=== PATIENT | female | born 1955 | race African-American/Black ===

== ENCOUNTER 2020-02-22 12:12 | Inpatient (IN) | payer BC, OTHER ==
[2020-02-22] MEDS ORDERED: predniSONE 20 MG TAB ONE (12:41)
[2020-02-22] MEDS ORDERED: Acetaminophen 500 MG TAB ONE (12:41)
[2020-02-22 13:49] LABS: #Basophils 0.2 thou/uL (0.0-0.2); #Lymphocytes 0.9 thou/uL (1.20-3.40); #Monocytes 0.3 thou/uL (0.11-0.59); #Neutrophils 4.9 thou/uL (1.40-6.50); %Basophils 2.5 % (0.0-1.0); %Eosinophils 0.2 % (0.0-10.0); %Lymphocytes 14.7 % (21.0-51.0); %Monocytes 4.8 % (0.0-10.0); %Neutrophils 77.8 % (42.0-75.0); Hemoglobin 12.2 g/dL (12.0-16.0); Mean Corpuscular HGB CONC 31.4 g/dL (32.0-36.0); Mean Corpuscular Volume 79.8 fL (78.0-98.0); Mean Platelet Volume 7.9 fL (7.4-10.4); Platelet Count 272 thou/uL (130-400); RBC Distribution Width 12.6 % (11.5-14.5); Red Blood Cell (RBC) Count 4.86 mill/uL (4.20-5.40); White Blood Cell (WBC) Count 6.3 thou/uL (4.8-10.8)
[2020-02-22 14:09] LABS: ALT (SGPT) 79 U/L (8-55); AST (SGOT) 84 U/L (5-34); Albumin 3.9 g/dL (3.4-4.8); Alkaline Phosphatase 64 U/L (40-110); Anion Gap 12 mmol/L (10-20); BUN (Urea Nitrogen) 8 mg/dL (9.8-20.1); Bilirubin, Total 0.4 mg/dL (0.2-1.2); Calc. Creatinine Clearance 0 mL/min (70-130); Calcium 8.5 mg/dL (7.8-10.44); Carbon Dioxide 27 mmol/L (23-31); Chloride 103 mmol/L (98-107); Estimated GFR-MDRD Greater than 90; Globulin 2.8 g/dL (2.4-3.5); Glucose 119 mg/dL (80-115); Potassium 3.8 mmol/L (3.5-5.1); Protein, Total 6.7 g/dL (6.0-8.3); Sodium 138 mmol/L (136-145)
--- NOTE | 2020-02-22 14:11 | RAD ---
PORTABLE CHEST 1 VIEW: DATE: . TIME: 12:22 PM. HISTORY: Difficulty breathing, fever, daughter is COVID positive. FINDINGS: The heart size is normal. The aorta is tortuous. There are patchy peripheral opacities. No pneumot horaces or pleural effusions are seen. Degenerative changes are seen in the spine. Recommend correlation for COVID-19. POS: [facility]
[2020-02-22] MEDS ORDERED: Senokot S 8.6-50 MG TAB PO PRN (17:18)
[2020-02-22] MEDS ORDERED: Acetaminophen 650 MG Suppository PR PRN (17:18)
[2020-02-22] MEDS ORDERED: Ondansetron ODT 4 MG TAB PO PRN (17:18)
[2020-02-22] MEDS ORDERED: Ondansetron PF 4 MG/2 ML Vial IVP PRN (17:18)
[2020-02-22 17:56] VITALS: BMI 31.9
--- NOTE | 2020-02-22 23:29 | HP ---
PRIMARY CARE PHYSICIAN: Out of town and [place]. CHIEF COMPLAINT: Fever and shortness of breath. HISTORY OF PRESENT ILLNESS: This is a 65-year-old female with a past medical history of hypertension, who has been in town helping her daughter take care of her grandson. The patient reports that her daughter works in [employer]. She was tested for COVID 2 weeks ago, was negative and then last week she was retested and came back positive for COVID. Her daughter had some mild respiratory symptoms, but is now improving. The patient starting about a week ago, started to get some cough and congestion, three days ago started to get severe worsening of symptoms. She developed high fevers to 101, shortness of breath especially with the need for ambulation and chest pain with cough, worsening cough productive of clear sputum and diarrhea about five times per day. The patient reports that her dyspnea on exertion got so severe that she felt like she could not even move out of bed this morning and was very dyspneic on having ambulate to the bathroom and so, she came into the emergency room. She did call an ambulance. They found her to be 92% on room air at rest and put her on oxygen. She felt significantly better. In the emergency room, she had a chest x-ray done which showed some bilateral infiltrate to the peripheries consistent with COVID pneumonia and she had a COVID test sent, which is now pending. REVIEW OF SYSTEMS: CONSTITUTIONAL: See HPI. EYES: No double vision or blurred vision. ENT: She has had a little bit of runny nose. No sore throat. CARDIOVASCULAR: See HPI. No palpitations or racing heart. PULMONARY: See HPI. GASTROINTESTINAL: No abdominal pain. She has had some nausea and vomited some yesterday but not today and diarrhea about five times per day for the last three days. No blood or mucus in the diarrhea. GENITOURINARY: No dysuria or hematuria. MUSCULOSKELETAL: No muscle aches or joint pain. SKIN: No rashes or lesions noted. NEUROLOGIC: No numbness, tingling, or focal weakness, just some generalized weakness. PAST MEDICAL HISTORY: Hypertension. PAST SURGICAL HISTORY: None. SOCIAL HISTORY: No tobacco, alcohol, or illicit drug use. She normally lives with her . However, she is visiting in the town to take care of her grandson and so staying with her daughter right now. FAMILY HISTORY: Significant for cancer in some family members and some high blood pressure. ALLERGIES: NO KNOWN DRUG ALLERGIES. CURRENT MEDICATIONS: 1. Metoprolol succinate 50 mg daily. 2. Amlodipine 10 mg daily. 3. Citalopram 20 mg daily. 4. Hyoscyamine sulfate 0.125 mg every 6 hours as needed for abdominal cramping. PHYSICAL EXAMINATION: VITAL SIGNS: Blood pressure 128/75, pulse 88, respirations 18, O2 saturation 97% on 2 L of oxygen, temperature 101.1 initially in the emergency room for which she was given Tylenol. GENERAL: This is a well-developed obese female, in no acute distress. HEENT: Pupils are equal, round, and reactive to light. Oropharynx clear without lesions, erythema, or exudate. NECK: Supple. No lymphadenopathy. No thyroid nodules or enlargement. No JVD. HEART: Regular rate and rhythm. No murmurs, rubs, or gallops. LUNGS: Some occasional crackles in bilateral lung rodríguez, but decent air movement throughout. She did have some increased work of breathing and mild shortness of breath with talking. ABDOMEN: Soft, nontender to palpation. Normoactive bowel sounds. No hepatosplenomegaly or other masses. EXTREMITIES: No clubbing, cyanosis, or edema. SKIN: No rashes or lesions noted. NEUROLOGIC: No numbness, tingling, or focal weakness. PSYCHIATRIC: Alert and oriented x3. Normal mood and affect. LABORATORY DATA: CBC within normal limits. Complete metabolic panel is notable for BUN of 8, glucose of 119, AST of 84, and ALT of 79. The rest was normal. Troponin was negative x1 and brain natriuretic peptide was negative as well. Chest x-ray, I did review the chest x-ray done in the emergency room along with the radiologist's report. It does show patchy peripheral opacities consistent with COVID-19 pneumonia. EKG in the emergency room shows normal sinus rhythm with no ST-segment changes or T-wave abnormalities. Normal EKG. ASSESSMENT: 1. COVID-19 pneumonia. Currently, the patient is only requiring low doses of oxygen and is clinically stable, so we will hold off on dexamethasone for now. We will need to monitor closely in the hospital for any deterioration. 2. Acute hypoxic respiratory failure, improved with nasal cannula oxygen. We will see how quickly we can wean her off this. 3. Hypertension. Resume the patient's home medications. 4. Gastrointestinal prophylaxis. Patient on Pepcid twice a day. 5. Deep venous thrombosis prophylaxis. Patient on subcu Lovenox. 6. Code status. The patient is a full code. Should she be incapacitated, she states that her medical decision maker would be her daughter or her . Job ID: [id number]
[2020-02-23] MEDS: Acetaminophen 325 MG TAB PO PRN ×3 (01:57→18:27)
[2020-02-23 05:24] LABS: ALT (SGPT) 73 U/L (8-55); AST (SGOT) 59 U/L (5-34); Albumin 3.7 g/dL (3.4-4.8); Alkaline Phosphatase 62 U/L (40-110); Anion Gap 13 mmol/L (10-20); BUN (Urea Nitrogen) 12 mg/dL (9.8-20.1); Bilirubin, Total 0.3 mg/dL (0.2-1.2); Calc. Creatinine Clearance 95 mL/min (70-130); Calcium 8.9 mg/dL (7.8-10.44); Carbon Dioxide 27 mmol/L (23-31); Chloride 103 mmol/L (98-107); Estimated GFR-MDRD 85; Globulin 3.3 g/dL (2.4-3.5); Glucose 128 mg/dL (80-115); Potassium 3.6 mmol/L (3.5-5.1); Sodium 139 mmol/L (136-145)
[2020-02-23 05:47] LABS: Band 6 % (5-11); Hemoglobin 11.9 g/dL (12.0-16.0); Hypochromia SLIGHT = 6-15 cells (100X) (0-5/hpf); Lymphocytes 13 % (21-51); MDiff Complete? YES; Mean Corpuscular Hemoglobin 24.6 pg (27.0-31.0); Mean Corpuscular Volume 79.5 fL (78.0-98.0); Monocytes 3 % (0-10); Neutrophil 78 % (42-75); Platelet Count 310 thou/uL (130-400); Platelet Morphology Comment Appears Adequate; RBC Distribution Width 12.7 % (11.5-14.5); Red Blood Cell (RBC) Count 4.84 mill/uL (4.20-5.40); White Blood Cell (WBC) Count 4.9 thou/uL (4.8-10.8)
[2020-02-23] MEDS: Enoxaparin Sodium 40 MG/0.4 ML SYRINGE SC SCH ×2 (07:45→08:11)
[2020-02-23] MEDS: Amlodipine 10 MG TAB PO SCH (07:46)
[2020-02-23] MEDS: Citalopram 20 MG TAB PO SCH (07:46)
[2020-02-23 14:15] LABS: SARS-CoV-2 MS2 Positive; SARS-CoV-2 N Gene Positive; SARS-CoV-2 S Gene Positive; SARS-CoV-2 orf1ab Positive
[2020-02-23] MEDS ORDERED: Loperamide HCl 2 MG CAP PO PRN (17:16)
[2020-02-23] MEDS ORDERED: Albuterol Sulfate 2.5 mg/3 ml Neb NEB SCH ×2 (18:15→19:00)
[2020-02-23] MEDS ORDERED: Dexamethasone 4 MG TAB PO SCH (18:15)
[2020-02-23] MEDS: Guaifenesin DM 100-10/5 ML UDCUP PO PRN (18:27)
[2020-02-23] MEDS ORDERED: Azithromycin 500 MG in Sodium Chloride 0.9% 250 ML 250 ML IVPB SCH (18:30)
[2020-02-23] MEDS: Albuterol 200 PUFF (6.7GM INHALER) INH SCH (18:57)
--- NOTE | 2020-02-23 20:22 | PDOC.HOSPP ---
- Subjective Encounter Date: 02/23/20 Encounter Time: 17:00 Subjective: f/u for COVID-19 PNA on current Zithromax/Dexamethasone/Albuterol/O2 @ 2L/min. c /o body aches, diarrhea and ARELLANO. - Objective Vital Signs & Weight: Vital Signs (12 hours) Temp Pulse Resp BP Pulse Ox 02/23/20 19:35 99.3 F 96 20 132/67 94 L 02/23/20 16:26 101.7 F H 90 18 145/66 H 94 L 02/23/20 12:11 99.8 F H 90 18 139/66 90 L Weight Admit Weight 192 lb Weight 192 lb I&O: 02/22/20 02/23/20 02/24/20 06:59 06:59 06:59 Intake Total 300 720 Output Total 245 Balance 55 720 Result Diagrams: 02/23/20 04:39 02/23/20 04:39 Additional Labs: Laboratory Tests 02/22/20 02/22/20 02/22/20 13:35 13:35 16:51 AST 84 H ALT 79 H B-Natriuretic Peptide Less than 10.0 COVID-19 PCR DETECTED A* 02/23/20 04:39 AST 59 H ALT 73 H B-Natriuretic Peptide COVID-19 PCR Radiology Reviewed by me: Yes (PCXR - patchy peripheral infiltrates) EKG Reviewed by me: Yes (Tele - SR) Hospitalist ROS - Medication Medications: Active Medications Generic Name Dose Route Start Last Admin Trade Name Freq PRN Reason Stop Dose Admin Acetaminophen 650 mg 02/22/20 17:18 02/23/20 18:27 Tylenol PO 650 mg Q4H PRN Administration Headache/Fever/Mild Pain (1-3) Albuterol Sulfate 2 puff 02/23/20 19:00 02/23/20 18:57 Proventil Hfa INH 2 puff [id number] ARCHANA Administration Amlodipine Besylate 10 mg 02/23/20 09:00 02/23/20 07:46 Norvasc PO 10 mg DAILY ARCHANA Administration Citalopram Hydrobromide 20 mg 02/23/20 09:00 02/23/20 07:46 Celexa PO 20 mg DAILY ARCHANA Administration Dexamethasone 6 mg 02/23/20 18:15 02/23/20 18:27 Decadron PO 02/23/20 20:30 6 mg NOW ARCHANA Administration Enoxaparin Sodium 40 mg 02/23/20 09:00 02/23/20 08:11 Lovenox SC Not Given 0900 [facility] Guaifenesin/Dextromethorphan 15 ml 02/23/20 17:18 02/23/20 18:27 Robitussin Dm PO 15 ml Q4H PRN Administration Cough Azithromycin 500 mg/ Sodium 250 mls @ 250 mls/hr 02/23/20 18:30 02/23/20 18: 57 Chloride IVPB 250 mls 1830 ARCHANA Administration Loperamide HCl 2 mg 02/23/20 17:16 02/23/20 18:27 Imodium PO 2 mg DAILYPRN PRN Administration Diarrhea/Loose Stools Metoprolol Succinate 50 mg 02/23/20 09:00 02/23/20 07:46 Toprol Xl PO 50 mg DAILY ARCHANA Administration Ondansetron HCl 4 mg 02/22/20 17:18 02/23/20 16:21 Zofran Odt PO 4 mg Q6H PRN Administration Nausea/Vomiting Pantoprazole Sodium 40 mg 02/23/20 09:00 02/23/20 07:46 Protonix PO 40 mg DAILY ARCHANA Administration - Exam General Appearance: awake alert, ill appearing General - other findings: responsive to questions Eye: PERRL, anicteric sclera ENT: normocephalic atraumatic, no oropharyngeal lesions Neck: supple, symmetric, no JVD, no thyromegaly, no lymphadenopathy Heart: RRR, no murmur, no gallops, no rubs, normal peripheral pulses Heart - other findings: S1, S2 Respiratory: tachypneic Respiratory - other findings: diminished bilat, occ wheeze and rhonchi bilat Gastrointestinal: soft, non-tender, non-distended, normal bowel sounds, no palpable masses Extremities: no cyanosis, no clubbing, no edema Skin: normal turgor, no lesions Neurological: cranial nerve grossly intact, no new deficit Musculoskeletal: normal tone, normal strength, no muscle wasting Psychiatric: normal affect, A&O x 3 Hosp A/P (1) Pneumonia due to COVID-19 virus Code(s): U07.1 - COVID-19; J12.89 - OTHER VIRAL PNEUMONIA Status: Acute Plan: Continue Zithromax/Dexamethasone/Albuterol, isolation protocol, O2 as clinically indicated (2) Acute respiratory failure with hypoxia Code(s): J96.01 - ACUTE RESPIRATORY FAILURE WITH HYPOXIA Status: Acute Plan: continue O2 support, wean as clinically indicated (3) HTN (hypertension) Code(s): I10 - ESSENTIAL (PRIMARY) HYPERTENSION Status: Chronic Qualifiers: Hypertension type: essential hypertension Qualified Code(s): I10 - Essential (primary) hypertension Plan: Resume home BP regimen and monitor trend (4) Transaminitis Code(s): R74.0 - NONSPEC ELEV OF LEVELS OF TRANSAMNS & LACTIC ACID DEHYDRGNSE Status: Chronic Plan: Suspect chronic and related to fatty infiltration, serial monitoring - Plan continue antibiotics, outreach and education social worker, respiratory therapy, out of bed/ambulate , DVT proph w/SCDs Stable currently Continue Zithromax IV Continue Dexamethasone Continue Albuterol/O2 support Isolation protocol OOB/ambulate
[2020-02-24] MEDS: Albuterol 200 PUFF (6.7GM INHALER) INH SCH ×4 (01:20→18:43)
[2020-02-24] MEDS: Dexamethasone 4 MG TAB PO SCH (07:42)
[2020-02-24] MEDS: Amlodipine 10 MG TAB PO SCH (07:43)
[2020-02-24] MEDS: Enoxaparin Sodium 40 MG/0.4 ML SYRINGE SC SCH (07:44)
[2020-02-24] MEDS: Acetaminophen 325 MG TAB PO PRN ×2 (07:44→20:00)
[2020-02-24] MEDS: Citalopram 20 MG TAB PO SCH (07:44)
--- NOTE | 2020-02-24 15:12 | PDOC.HOSPP ---
- Subjective Encounter Date: 02/24/20 Encounter Time: 14:50 Subjective: f/u for COVID-19 PNA on Zithromax/Albuterol/O2 support. Feels better overall with some SOB with ambulation. - Objective Vital Signs & Weight: Vital Signs (12 hours) Temp Pulse Resp BP BP Pulse Ox 02/24/20 11:34 99.0 F 77 19 113/58 L 94 L 02/24/20 08:43 93 L 02/24/20 08:00 99.1 F 86 18 147/70 H 93 L 02/24/20 05:15 94 L 02/24/20 04:00 98.9 F 85 20 122/67 94 L Weight Admit Weight 192 lb Weight 192 lb I&O: 02/23/20 02/24/20 02/25/20 06:59 06:59 06:59 Intake Total 300 1620 Output Total 245 Balance 55 1620 Result Diagrams: 02/23/20 04:39 02/23/20 04:39 Additional Labs: Laboratory Tests 02/22/20 02/22/20 02/22/20 13:35 13:35 16:51 AST 84 H ALT 79 H B-Natriuretic Peptide Less than 10.0 COVID-19 PCR DETECTED A* 02/23/20 04:39 AST 59 H ALT 73 H B-Natriuretic Peptide COVID-19 PCR EKG Reviewed by me: Yes (Tele - SR) Hospitalist ROS - Medication Medications: Active Medications Generic Name Dose Route Start Last Admin Trade Name Freq PRN Reason Stop Dose Admin Acetaminophen 650 mg 02/22/20 17:18 02/24/20 07:44 Tylenol PO 650 mg Q4H PRN Administration Headache/Fever/Mild Pain (1-3) Albuterol Sulfate 2 puff 02/23/20 19:00 02/24/20 12:43 Proventil Hfa INH 2 puff [id number] ARCHANA Administration Amlodipine Besylate 10 mg 02/23/20 09:00 02/24/20 07:43 Norvasc PO 10 mg DAILY ARCHANA Administration Citalopram Hydrobromide 20 mg 02/23/20 09:00 02/24/20 07:44 Celexa PO 20 mg DAILY ARCHANA Administration Dexamethasone 6 mg 02/24/20 08:00 02/24/20 07:42 Decadron PO 6 mg QAM-WM ARCHANA Administration Enoxaparin Sodium 40 mg 02/23/20 09:00 02/24/20 07:44 Lovenox SC 40 mg 0900 ARCHANA Administration Guaifenesin/Dextromethorphan 15 ml 02/23/20 17:18 02/23/20 18:27 Robitussin Dm PO 15 ml Q4H PRN Administration Cough Loperamide HCl 2 mg 02/23/20 17:16 02/23/20 18:27 Imodium PO 2 mg DAILYPRN PRN Administration Diarrhea/Loose Stools Metoprolol Succinate 50 mg 02/23/20 09:00 02/24/20 07:44 Toprol Xl PO 50 mg DAILY ARCHANA Administration Ondansetron HCl 4 mg 02/22/20 17:18 02/23/20 16:21 Zofran Odt PO 4 mg Q6H PRN Administration Nausea/Vomiting Pantoprazole Sodium 40 mg 02/23/20 09:00 02/24/20 07:44 Protonix PO 40 mg DAILY ARCHANA Administration - Exam General Appearance: NAD, awake alert Eye: PERRL, anicteric sclera ENT: normocephalic atraumatic, no oropharyngeal lesions Neck: supple, symmetric, no JVD, no thyromegaly, no lymphadenopathy Heart: RRR, no murmur, no gallops, no rubs, normal peripheral pulses Heart - other findings: S1, S2 Respiratory: normal chest expansion, tachypneic Respiratory - other findings: diminished bilat, exp wheeze Gastrointestinal: soft, non-tender, non-distended, normal bowel sounds, no palpable masses Extremities: no cyanosis, no clubbing, no edema Skin: normal turgor, no lesions Neurological: cranial nerve grossly intact, no new deficit Musculoskeletal: normal tone, normal strength, no muscle wasting Psychiatric: A&O x 3 Psychiatric - other findings: tearful Hosp A/P (1) Pneumonia due to COVID-19 virus Code(s): U07.1 - COVID-19; J12.89 - OTHER VIRAL PNEUMONIA Status: Acute Plan: Continue Zithromax/Dexamethasone/Albuterol, continue isolation precautions, O2 weaning as clinically indicated (2) Acute respiratory failure with hypoxia Code(s): J96.01 - ACUTE RESPIRATORY FAILURE WITH HYPOXIA Status: Acute Plan: See above #1 (3) HTN (hypertension) Code(s): I10 - ESSENTIAL (PRIMARY) HYPERTENSION Status: Chronic Qualifiers: Hypertension type: essential hypertension Qualified Code(s): I10 - Essential (primary) hypertension Plan: Stable, continue home BP regimen (4) Transaminitis Code(s): R74.0 - NONSPEC ELEV OF LEVELS OF TRANSAMNS & LACTIC ACID DEHYDRGNSE Status: Chronic Plan: Likely fatty liver infiltration - Plan continue antibiotics, PT/OT, social worker aide, respiratory therapy, out of bed/ ambulate, DVT proph w/SCDs Stable currently Continue Zithromax IV Continue Dexamethasone Continue Albuterol/O2 support Isolation protocol OOB/ambulate Wean O2 as clinically indicated
[2020-02-24] MEDS: Azithromycin 500 MG in Sodium Chloride 0.9% 250 ML 250 ML IVPB SCH (20:00)
[2020-02-24] MEDS: Guaifenesin DM 100-10/5 ML UDCUP PO PRN (20:00)
[2020-02-25] MEDS: Albuterol 200 PUFF (6.7GM INHALER) INH SCH ×4 (01:19→18:30)
[2020-02-25] MEDS: Dexamethasone 4 MG TAB PO SCH (08:26)
[2020-02-25] MEDS: Citalopram 20 MG TAB PO SCH (08:26)
[2020-02-25] MEDS: Amlodipine 10 MG TAB PO SCH (08:26)
[2020-02-25] MEDS: Enoxaparin Sodium 40 MG/0.4 ML SYRINGE SC SCH (08:27)
[2020-02-25] MEDS: Acetaminophen 325 MG TAB PO PRN (08:34)
--- NOTE | 2020-02-25 17:13 | PDOC.HOSPP ---
- Subjective Encounter Date: 02/25/20 Encounter Time: 17:10 Subjective: f/u for COVID-19 PNA on current Zithromax/Dexamethasone/Albuterol and O2 @ 2L/ min NC. States feeling better today. - Objective Vital Signs & Weight: Vital Signs (12 hours) Temp Pulse Resp BP Pulse Ox 02/25/20 16:40 98.9 F 73 18 132/63 96 02/25/20 12:33 98.6 F 69 20 116/62 94 L 02/25/20 11:29 96 02/25/20 08:47 99.0 F 70 18 141/65 H 96 Weight Admit Weight 192 lb Weight 192 lb I&O: 02/24/20 02/25/20 02/26/20 06:59 06:59 06:59 Intake Total [id number] Balance 1619 2079 Result Diagrams: 02/23/20 04:39 02/23/20 04:39 Additional Labs: Laboratory Tests 02/22/20 02/22/20 02/22/20 13:35 13:35 16:51 AST 84 H ALT 79 H B-Natriuretic Peptide Less than 10.0 COVID-19 PCR DETECTED A* 02/23/20 04:39 AST 59 H ALT 73 H B-Natriuretic Peptide COVID-19 PCR EKG Reviewed by me: Yes (Tele - SR) Hospitalist ROS - Medication Medications: Active Medications Generic Name Dose Route Start Last Admin Trade Name Freq PRN Reason Stop Dose Admin Acetaminophen 650 mg 02/22/20 17:18 02/25/20 08:34 Tylenol PO 650 mg Q4H PRN Administration Headache/Fever/Mild Pain (1-3) Albuterol Sulfate 2 puff 02/23/20 19:00 02/25/20 12:55 Proventil Hfa INH 2 puff [id number] ARCHANA Administration Amlodipine Besylate 10 mg 02/23/20 09:00 02/25/20 08:26 Norvasc PO 10 mg DAILY ARCHANA Administration Citalopram Hydrobromide 20 mg 02/23/20 09:00 02/25/20 08:26 Celexa PO 20 mg DAILY ARCHANA Administration Dexamethasone 6 mg 02/24/20 08:00 02/25/20 08:26 Decadron PO 6 mg QAM-WM ARCHANA Administration Enoxaparin Sodium 40 mg 02/23/20 09:00 02/25/20 08:27 Lovenox SC 40 mg 0900 ARCHANA Administration Guaifenesin/Dextromethorphan 15 ml 02/23/20 17:18 02/24/20 20:00 Robitussin Dm PO 15 ml Q4H PRN Administration Cough Azithromycin 500 mg/ Sodium 250 mls @ 250 mls/hr 02/24/20 21:00 02/24/20 20: 00 Chloride IVPB 250 mls 2100 ARCHANA Administration Loperamide HCl 2 mg 02/23/20 17:16 02/23/20 18:27 Imodium PO 2 mg DAILYPRN PRN Administration Diarrhea/Loose Stools Metoprolol Succinate 50 mg 02/23/20 09:00 02/25/20 08:26 Toprol Xl PO 50 mg DAILY ARCHANA Administration Ondansetron HCl 4 mg 02/22/20 17:18 02/23/20 16:21 Zofran Odt PO 4 mg Q6H PRN Administration Nausea/Vomiting Pantoprazole Sodium 40 mg 02/23/20 09:00 02/25/20 08:27 Protonix PO 40 mg DAILY ARCHANA Administration Senna/Docusate Sodium 2 tab 02/22/20 17:18 02/25/20 12:38 Senokot S PO 2 tab BID PRN Administration Constipation - Exam General Appearance: NAD, awake alert Eye: PERRL, anicteric sclera ENT: normocephalic atraumatic, no oropharyngeal lesions Neck: supple, symmetric, no JVD, no thyromegaly, no lymphadenopathy Heart: RRR, no murmur, no gallops, no rubs, normal peripheral pulses Heart - other findings: S1, S2 Respiratory: CTAB, no ronchi, normal chest expansion, no tachypnea Respiratory - other findings: few exp wheezes Gastrointestinal: soft, non-tender, non-distended, normal bowel sounds, no palpable masses Extremities: no cyanosis, no clubbing, no edema Skin: normal turgor, no lesions Neurological: cranial nerve grossly intact, no new deficit Musculoskeletal: normal tone, normal strength, no muscle wasting Psychiatric: normal affect, A&O x 3 Hosp A/P (1) Pneumonia due to COVID-19 virus Code(s): U07.1 - COVID-19; J12.89 - OTHER VIRAL PNEUMONIA Status: Acute Plan: Continue Zithromax/Dexamethasone/Albuterol, isolation protocol (2) Acute respiratory failure with hypoxia Code(s): J96.01 - ACUTE RESPIRATORY FAILURE WITH HYPOXIA Status: Acute Plan: Wean off O2 support as clinically indicated (3) HTN (hypertension) Code(s): I10 - ESSENTIAL (PRIMARY) HYPERTENSION Status: Chronic Qualifiers: Hypertension type: essential hypertension Qualified Code(s): I10 - Essential (primary) hypertension (4) Transaminitis Code(s): R74.0 - NONSPEC ELEV OF LEVELS OF TRANSAMNS & LACTIC ACID DEHYDRGNSE Status: Chronic - Plan continue antibiotics, PT/OT, social media designer, respiratory therapy, out of bed/ ambulate, DVT proph w/SCDs Stable currently Continue Zithromax IV Continue Dexamethasone Continue Albuterol/O2 support Isolation protocol OOB/ambulate Wean O2 as clinically indicated Likely home in 24h-48h
[2020-02-25] MEDS: Azithromycin 500 MG in Sodium Chloride 0.9% 250 ML 250 ML IVPB SCH (19:42)
[2020-02-26] MEDS: Albuterol 200 PUFF (6.7GM INHALER) INH SCH ×5 (02:07→23:12)
[2020-02-26] MEDS: Guaifenesin DM 100-10/5 ML UDCUP PO PRN (03:02)
[2020-02-26] MEDS: Enoxaparin Sodium 40 MG/0.4 ML SYRINGE SC SCH (09:16)
[2020-02-26] MEDS: Amlodipine 10 MG TAB PO SCH (09:17)
[2020-02-26] MEDS: Dexamethasone 4 MG TAB PO SCH (09:17)
[2020-02-26] MEDS: Citalopram 20 MG TAB PO SCH (09:17)
--- NOTE | 2020-02-26 12:11 | PDOC.HOSPP ---
- Subjective Encounter Date: 02/26/20 Encounter Time: 12:00 Subjective: f/u for COVID-19 PNA on current Zithromax/Dexamethasone/Albuterol. States increased coughing this am. Feels tired. - Objective Vital Signs & Weight: Vital Signs (12 hours) Temp Pulse Resp BP Pulse Ox 02/26/20 09:25 99.4 F 77 31 H 134/66 95 02/26/20 08:19 94 L 02/26/20 03:44 99.6 F 79 16 142/66 H 94 L 02/26/20 02:29 95 Weight Admit Weight 192 lb Weight 192 lb I&O: 02/25/20 02/26/20 02/27/20 06:59 06:59 06:59 Intake Total 2079 1260 Balance 2079 1260 Result Diagrams: 02/23/20 04:39 02/23/20 04:39 Additional Labs: Laboratory Tests 02/22/20 02/22/20 02/22/20 13:35 13:35 16:51 AST 84 H ALT 79 H B-Natriuretic Peptide Less than 10.0 COVID-19 PCR DETECTED A* 02/23/20 04:39 AST 59 H ALT 73 H B-Natriuretic Peptide COVID-19 PCR EKG Reviewed by me: Yes (Tele - SR) Hospitalist ROS - Medication Medications: Active Medications Generic Name Dose Route Start Last Admin Trade Name Freq PRN Reason Stop Dose Admin Acetaminophen 650 mg 02/22/20 17:18 02/25/20 08:34 Tylenol PO 650 mg Q4H PRN Administration Headache/Fever/Mild Pain (1-3) Albuterol Sulfate 2 puff 02/23/20 19:00 02/26/20 02:07 Proventil Hfa INH 2 puff [id number] ARCHANA Administration Amlodipine Besylate 10 mg 02/23/20 09:00 02/26/20 09:17 Norvasc PO 10 mg DAILY ARCHANA Administration Citalopram Hydrobromide 20 mg 02/23/20 09:00 02/26/20 09:17 Celexa PO 20 mg DAILY ARCHANA Administration Dexamethasone 6 mg 02/24/20 08:00 02/26/20 09:17 Decadron PO 6 mg QAM-WM ARCHANA Administration Enoxaparin Sodium 40 mg 02/23/20 09:00 02/26/20 09:16 Lovenox SC 40 mg 0900 ARCHANA Administration Guaifenesin/Dextromethorphan 15 ml 02/23/20 17:18 02/26/20 03:02 Robitussin Dm PO 15 ml Q4H PRN Administration Cough Azithromycin 500 mg/ Sodium 250 mls @ 250 mls/hr 02/24/20 21:00 02/25/20 19: 42 Chloride IVPB 250 mls 2100 ARCHANA Administration Loperamide HCl 2 mg 02/23/20 17:16 02/23/20 18:27 Imodium PO 2 mg DAILYPRN PRN Administration Diarrhea/Loose Stools Metoprolol Succinate 50 mg 02/23/20 09:00 02/26/20 09:17 Toprol Xl PO 50 mg DAILY ARCHANA Administration Ondansetron HCl 4 mg 02/22/20 17:18 02/23/20 16:21 Zofran Odt PO 4 mg Q6H PRN Administration Nausea/Vomiting Pantoprazole Sodium 40 mg 02/23/20 09:00 02/26/20 09:17 Protonix PO 40 mg DAILY ARCHANA Administration Senna/Docusate Sodium 2 tab 02/22/20 17:18 02/25/20 12:38 Senokot S PO 2 tab BID PRN Administration Constipation - Exam General Appearance: NAD, awake alert Eye: PERRL, anicteric sclera ENT: normocephalic atraumatic, no oropharyngeal lesions Neck: supple, symmetric, no JVD, no thyromegaly, no lymphadenopathy Heart: RRR, no murmur, no gallops, no rubs, normal peripheral pulses Heart - other findings: S1, S2 Respiratory: tachypneic Respiratory - other findings: diminished in bases, few rhonchi/wheezes Gastrointestinal: soft, non-tender, non-distended, normal bowel sounds, no palpable masses Extremities: no cyanosis, no clubbing, no edema Skin: normal turgor, no lesions Neurological: cranial nerve grossly intact, no new deficit Musculoskeletal: normal tone, normal strength, no muscle wasting Psychiatric: normal affect, A&O x 3 Hosp A/P (1) Pneumonia due to COVID-19 virus Code(s): U07.1 - COVID-19; J12.89 - OTHER VIRAL PNEUMONIA Status: Acute Plan: Continue pulmonary supportive mgmt, Zithromax/Albuterol/Dexamethasone, isolation protocol (2) Acute respiratory failure with hypoxia Code(s): J96.01 - ACUTE RESPIRATORY FAILURE WITH HYPOXIA Status: Acute Plan: Wean O2 as clinically feasible (3) HTN (hypertension) Code(s): I10 - ESSENTIAL (PRIMARY) HYPERTENSION Status: Chronic Qualifiers: Hypertension type: essential hypertension Qualified Code(s): I10 - Essential (primary) hypertension (4) Transaminitis Code(s): R74.0 - NONSPEC ELEV OF LEVELS OF TRANSAMNS & LACTIC ACID DEHYDRGNSE Status: Chronic - Plan continue antibiotics, social services coordinator, respiratory therapy, out of bed/ambulate , DVT proph w/SCDs Stable currently Continue Zithromax IV Continue Dexamethasone Change Albuterol MDI q4h/O2 support Isolation protocol OOB/ambulate Wean O2 as clinically indicated Likely home in 24h-48h
[2020-02-26] MEDS: Azithromycin 500 MG in Sodium Chloride 0.9% 250 ML 250 ML IVPB SCH (20:01)
[2020-02-27] MEDS: Albuterol 200 PUFF (6.7GM INHALER) INH SCH ×6 (03:05→23:00)
--- NOTE | 2020-02-27 07:38 | PDOC.HOSPP ---
- Subjective Encounter Date: 02/27/20 Encounter Time: 11:30 Subjective: Patient with mild improvement in shortness of breath. Weaning O2 down. Still gets very anxious and tachypneic on and off, but improving. - Objective Vital Signs & Weight: Vital Signs (12 hours) Temp Pulse Resp BP Pulse Ox 02/27/20 04:21 97.9 F 68 28 H 142/68 H 95 02/27/20 00:15 98.8 F 67 19 138/64 95 02/26/20 20:10 99 F 67 16 134/64 95 Weight Admit Weight 192 lb Weight 192 lb I&O: 02/26/20 02/27/20 02/28/20 06:59 06:59 06:59 Intake Total 1260 1536 Balance 1260 1536 Result Diagrams: 02/23/20 04:39 02/23/20 04:39 Hospitalist ROS - Review of Systems Constitutional: denies: fever, chills Respiratory: reports: cough, shortness of breath Cardiovascular: denies: chest pain, palpitations Gastrointestinal: denies: nausea, vomiting, abdominal pain - Medication Medications: Active Medications Generic Name Dose Route Start Last Admin Trade Name Freq PRN Reason Stop Dose Admin Acetaminophen 650 mg 02/22/20 17:18 02/25/20 08:34 Tylenol PO 650 mg Q4H PRN Administration Headache/Fever/Mild Pain (1-3) Albuterol Sulfate 2 puff 02/26/20 14:30 02/27/20 06:29 Proventil Hfa INH 2 puff [id number] ARCHANA Administration Amlodipine Besylate 10 mg 02/23/20 09:00 02/26/20 09:17 Norvasc PO 10 mg DAILY ARCHANA Administration Citalopram Hydrobromide 20 mg 02/23/20 09:00 02/26/20 09:17 Celexa PO 20 mg DAILY ARCHANA Administration Dexamethasone 6 mg 02/24/20 08:00 02/26/20 09:17 Decadron PO 6 mg QAM-WM ARCHANA Administration Enoxaparin Sodium 40 mg 02/23/20 09:00 02/26/20 09:16 Lovenox SC 40 mg 0900 ARCHANA Administration Guaifenesin/Dextromethorphan 15 ml 02/23/20 17:18 02/26/20 03:02 Robitussin Dm PO 15 ml Q4H PRN Administration Cough Azithromycin 500 mg/ Sodium 250 mls @ 250 mls/hr 02/24/20 21:00 02/26/20 20: 01 Chloride IVPB 250 mls 2100 ARCHANA Administration Loperamide HCl 2 mg 02/23/20 17:16 02/23/20 18:27 Imodium PO 2 mg DAILYPRN PRN Administration Diarrhea/Loose Stools Metoprolol Succinate 50 mg 02/23/20 09:00 02/26/20 09:17 Toprol Xl PO 50 mg DAILY ARCHANA Administration Ondansetron HCl 4 mg 02/22/20 17:18 02/23/20 16:21 Zofran Odt PO 4 mg Q6H PRN Administration Nausea/Vomiting Pantoprazole Sodium 40 mg 02/23/20 09:00 02/26/20 09:17 Protonix PO 40 mg DAILY ARCHANA Administration Senna/Docusate Sodium 2 tab 02/22/20 17:18 02/25/20 12:38 Senokot S PO 2 tab BID PRN Administration Constipation - Exam General Appearance: NAD ENT: moist mucosa Heart: RRR, no murmur, no gallops, no rubs Respiratory: CTAB, no wheezes, no rales, no ronchi Gastrointestinal: soft, non-tender, non-distended, normal bowel sounds Psychiatric: normal affect, normal behavior, A&O x 3 Hosp A/P (1) Acute respiratory failure with hypoxia Code(s): J96.01 - ACUTE RESPIRATORY FAILURE WITH HYPOXIA Status: Acute (2) Pneumonia due to COVID-19 virus Code(s): U07.1 - COVID-19; J12.89 - OTHER VIRAL PNEUMONIA Status: Acute (3) HTN (hypertension) Code(s): I10 - ESSENTIAL (PRIMARY) HYPERTENSION Status: Chronic Qualifiers: Hypertension type: essential hypertension Qualified Code(s): I10 - Essential (primary) hypertension (4) Transaminitis Code(s): R74.0 - NONSPEC ELEV OF LEVELS OF TRANSAMNS & LACTIC ACID DEHYDRGNSE Status: Acute - Plan Stable currently Continue Zithromax IV Continue Dexamethasone Changed Albuterol MDI q4h/O2 support Isolation protocol OOB/ambulate Wean O2 as clinically indicated Home when improved and on room air
[2020-02-27] MEDS: Dexamethasone 4 MG TAB PO SCH (08:39)
[2020-02-27] MEDS: Enoxaparin Sodium 40 MG/0.4 ML SYRINGE SC SCH (08:42)
[2020-02-27] MEDS: Amlodipine 10 MG TAB PO SCH (08:42)
[2020-02-27] MEDS: Citalopram 20 MG TAB PO SCH (08:42)
[2020-02-27] MEDS: Azithromycin 500 MG in Sodium Chloride 0.9% 250 ML 250 ML IVPB SCH (20:32)
[2020-02-28] MEDS: Albuterol 200 PUFF (6.7GM INHALER) INH SCH ×6 (03:00→23:00)
[2020-02-28] MEDS: Enoxaparin Sodium 40 MG/0.4 ML SYRINGE SC SCH (07:48)
[2020-02-28] MEDS: Dexamethasone 4 MG TAB PO SCH (07:49)
[2020-02-28] MEDS: Citalopram 20 MG TAB PO SCH (07:49)
[2020-02-28] MEDS: Amlodipine 10 MG TAB PO SCH (07:49)
--- NOTE | 2020-02-28 13:24 | PRG ---
DATE OF SERVICE: SUBJECTIVE: The patient is seen and examined at the bedside. She is doing significantly better. She just had shower and she is off oxygen. She has been sick for 2 weeks, so she is still somewhat unsteady on her feet while getting up and walking around, but this is gradually getting better too. OBJECTIVE: VITAL SIGNS: Blood pressure is 120/60, pulse is 67, respirations 24, O2 saturation is 93% on room air, temperature is 99.3. HEENT: Her head is atraumatic and normocephalic. Eyes are PERRLA. Sclerae are nonicteric. Oral mucosa is moist. LUNGS: Breath sounds somewhat diminished at both bases. No wheezing. HEART: S1, S2 normal. No S3. No S4. ABDOMEN: Soft, nontender. NEUROLOGIC: She follows my commands. She moves her all 4 extremities. There is no any motor or sensory deficits. IMPRESSION: 1. Acute respiratory failure with hypoxemia. 2. Pneumonia due to COVID-19 virus. 3. Hypertension. 4. Transaminitis. PLAN: Continue Zithromax and dexamethasone. Increase ambulation tonight. If she is holding her oxygenation well and she feels stronger on her feet, she can be most likely discharged home tomorrow morning. Job ID: [id number]
[2020-02-28] MEDS: Azithromycin 500 MG in Sodium Chloride 0.9% 250 ML 250 ML IVPB SCH (20:58)
[2020-02-29] MEDS: Albuterol 200 PUFF (6.7GM INHALER) INH SCH ×3 (03:01→10:30)
[2020-02-29] MEDS ORDERED: Dexamethasone 1 MG TAB PO SCH (08:00)
[2020-02-29] MEDS: Amlodipine 10 MG TAB PO SCH (08:08)
[2020-02-29] MEDS: Citalopram 20 MG TAB PO SCH (08:08)
[2020-02-29] MEDS: Enoxaparin Sodium 40 MG/0.4 ML SYRINGE SC SCH (08:09)
[2020-02-29 12:59] VITALS: BP 121/67; TEMP 97.2
--- NOTE | 2020-02-29 16:52 | DIS ---
DATE OF ADMISSION: 02/22/2020 DATE OF DISCHARGE: 02/29/2020 DISCHARGE DISPOSITION: To home. PRIMARY DISCHARGE DIAGNOSES: COVID-19 pneumonia, acute respiratory failure with hypoxia, resolved. Hypertension. Anxiety disorder. PROCEDURES DONE DURING HOSPITALIZATION: The patient had a chest x-ray done on the day of admission, which showed patchy peripheral opacities. H and H 11 and 38, platelet count 310. BNP 10. COVID-19 PCR was positive on 02/22/2020. DISCHARGE MEDICATIONS: 1. Norvasc 10 mg daily. 2. Citalopram 20 mg daily. 3. Levsin p.r.n. 4. Metoprolol extended release 50 mg daily. 5. Albuterol inhaler q.6 hourly p.r.n. 6. Protonix 40 mg daily. ALLERGIES: NO KNOWN DRUG ALLERGIES. DISCHARGE PLAN: The patient to follow up with her primary care physician in 1 week. BRIEF COURSE DURING HOSPITALIZATION: The patient initially came in with complaints of fever and shortness of breath. COVID-19 PCR was positive. The patient was given Zithromax for 7 days along with dexamethasone. She has responded well to above measures. Prior to discharge, she is off oxygen and is ambulating and eating well. She is hemodynamically stable and will be shortly discharged home. She was advised to stay in quarantine for another 10 days prior to venturing out. She will stay with her family member who is also positive for COVID. She is from out of town. Please note, I have seen and examined the patient on the day of discharge. Job ID: [id number]
== END 2020-02-29 15:00 | disposition home or self-care (01) | DRG 177 ==
LOC: ERS 12:12 → 2SW 15:04 → OBSVTOIN 15:04
PROVIDERS: ADMIT Emergency Medicine; ATTEND Emergency Medicine
PROC: 8E0ZXY6 Isolation (ICD-10-PCS; principal; 2020-02-22)
DX: U07.1 COVID-19 (principal); J12.89 Other viral pneumonia; J96.01 Acute respiratory failure with hypoxia; I10 Essential (primary) hypertension; F41.9 Anxiety disorder, unspecified; R74.0 Nonspecific elevation of levels of transaminase and lactic acid dehydrogenase [LDH]; Z79.899 Other long term (current) drug therapy
CPT/HCPCS: 36415; 71045; 80053; 83880; 84484; 85025; 87635; 93005; 96360; G0378; J0456; J1650; J7050; J7512; J8540; Q0162; U0003

== ENCOUNTER 2021-02-10 10:54 | Day surgery (SDC) | payer BC, MEDICARE ==
[2021-02-10] MEDS ORDERED: Sodium Chloride 0.9% 100 ML ONE (13:44)
[2021-02-10] MEDS ORDERED: Piperacillin/Tazobactam 3.375 GM VIAL ONE (13:44)
[2021-02-10] MEDS ORDERED: Midazolam HCl 2 mg/2 ml Vial ONE (13:55)
[2021-02-10] MEDS ORDERED: Fentanyl 100 MCG/2 ML VIAL ONE (13:55)
[2021-02-10] MEDS ORDERED: Bupivacaine 0.25% HCL 30 ML VIAL ONE (13:56)
[2021-02-10] MEDS ORDERED: Lidocaine 1% w/Epinephrine 1:100K 20 ML VIAL ONE (13:56)
[2021-02-10] MEDS ORDERED: Glycopyrrolate 0.2 MG/ML 5 ML SYRINGE ONE (14:20)
[2021-02-10] MEDS ORDERED: ePHEDrine Sulfate 50 MG/10 ML VIAL ONE (14:20)
[2021-02-10] MEDS ORDERED: Lidocaine 1% PF 5 ML VIAL ONE (14:20)
[2021-02-10] MEDS ORDERED: Rocuronium Bromide 10 MG/ML (10ML VIAL) ONE (14:20)
[2021-02-10] MEDS ORDERED: Ondansetron PF 4 MG/2 ML Vial ONE (14:20)
[2021-02-10] MEDS ORDERED: PROPOFOL 200 MG/20 ML VIAL ONE (14:20)
[2021-02-10] MEDS ORDERED: Succinylcholine 200 MG/10 ml SYRINGE FS ONE (14:20)
[2021-02-10] MEDS ORDERED: Dexamethasone 20 MG/5 ML VIAL ONE (14:20)
== END 2021-02-10 18:00 | disposition home or self-care (01) ==
LOC: SDC 10:54
PROVIDERS: ATTEND Surgery
PROC: 0DTJ4ZZ Resection of Appendix, Percutaneous Endoscopic Approach (ICD-10-PCS; principal; 2021-02-10)
DX: K35.80 Unspecified acute appendicitis (principal); I10 Essential (primary) hypertension; Z79.899 Other long term (current) drug therapy; Z91.040 Latex allergy status
CPT/HCPCS: 87070; 87205; 88304; J1100; J2250; J2405; J2543; J2704; J3010; J3490; S0020